=== PATIENT | female | born 1940 | race Caucasian/White ===

== ENCOUNTER → 2019-02-11 13:25 | Outpatient (CLI) | payer MEDICARE, OTHER, SELFPAY ==
--- NOTE | 2019-02-11 | DI.MRI.S_ITS ---
PROCEDURE: MR LUMBAR SPINE WO CON INDICATIONS: Spinal stenosis, lumbar region with neurogenic cla TECHNIQUE: Noncontrast sagittal T1 spin echo and T2 fast echo, sagittal STIR, axial T1 and T2 fast spin echo through the lumbar spine. In cases with scoliosis, additional coronal T2 fast spin echo may be performed. COMPARISON: None. FINDINGS: Image quality: Excellent. Alignment and Curvature: There is grade I L1 on the L2, and L2 on L3 retrolisthesis. Bone Marrow: Marrow signal is heterogeneous throughout. There are Modic type III changes at L5-S1. Spinal Cord: Conus medullaris terminates at the T12 level. Visualized cord demonstrates normal signal and size. Paraspinous Soft Tissues: No paravertebral masses. L1-L2: Severe disc desiccation and height loss. There is partial fusion of L1-2 disc interspace. Severe facet and ligamentum flavum hypertrophy. Moderate left and severe right neuroforaminal stenosis. No canal stenosis. L2-L3: Retrolisthesis. Severe disc desiccation and height loss. Severe facet and ligamentum flavum hypertrophy. No canal stenosis. Moderate right and mild left neuroforaminal narrowing. L3-L4: Severe disc desiccation and height loss. Severe facet and ligamentum flavum hypertrophy. Mild canal stenosis. Moderate bilateral neuroforaminal stenosis. L4-L5: Severe disc desiccation and height loss with partial fusion at the disc interspace. Severe facet ligamentum flavum hypertrophy. No canal stenosis. Severe narrowing of the bilateral lateral recesses. Moderate bilateral neuroforaminal stenosis. There is a right perineural cyst which displaces the nerve root posteriorly. L5-S1: Mild disc desiccation and height loss. Facet and ligamentum flavum hypertrophy. No canal stenosis. There is a right perineural cyst which displaces the nerve root posteriorly. Mild bilateral foraminal narrowing. IMPRESSION: 1. Severe degenerative disc disease throughout the lumbar spine with partial fusion at L4-5 and L1-2. 2. Grade I L1 on L2 and L2 on L3 retrolisthesis. 3. Moderate to severe neuroforaminal stenosis at L1-L2, L2-L3, L3-L4, and L4-L5. 4. Mild canal stenosis at L3-4. 5. Severe narrowing of the bilateral lateral recesses at L4-5. 6. 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 Dictated by: Mera Roberts M.D. on 02/12/2019 at 11:57 Approved by: Mera Roberts M.D. on 02/12/2019 at 12:10
== END ==
PROVIDERS: PCP Family Medicine; Visit Provider Physical Medicine & Rehabilitation Pain Medicine
DX: M48.062 Spinal stenosis, lumbar region with neurogenic claudication (principal); M51.36 Other intervertebral disc degeneration, lumbar region; M43.16 Spondylolisthesis, lumbar region; Z98.1 Arthrodesis status
CPT/HCPCS: 72148